=== PATIENT | male | born 1995 | race American Indian/Alaskan Native ===

== ENCOUNTER 2016-11-13 06:47 | Emergency (ER) | payer OTHER ==
[2016-11-13 07:04] VITALS: BP 113/76
[2016-11-13] MEDS ORDERED: NORCO 5/325 PO ONE (09:28)
--- NOTE | 2016-11-13 09:28 | Emergency Department Report ---
- General Chief complaint: Skin/Abscess/Foreign Body Stated complaint: UNABLE TO MOVE LT ARM Time Seen by Provider: 11/13/16 09:16 Source: patient, family Mode of arrival: Ambulatory Limitations: No Limitations - History of Present Illness Initial comments: Patient here report left armpit pain and said he thinks he has an abscess but he cannot see anything. Denies any fever or chills. Denies any nausea or vomiting. Denies any injury. Tetanus vaccine is up-to-date. MD complaint: abscess/boil Onset/Timin -: days(s) Tetanus Up to Date: yes Location: LUE (left arm.) Severity: severe Severity scale (0 -10): 10 Quality: stabbing, aching Consistency: constant Improves with: immobilization Worsens with: palpation, movement Context: none Associated symptoms: denies other symptoms Treatments Prior to Arrival: none - Related Data Previous Rx's Medication Instructions Recorded Last Taken Type HYDROcodone/APAP 5-325 [[place] 1 each PO Q6HR PRN #12 tablet 11/13/16 Unknown Rx 5/325] Ibuprofen [Motrin] 800 mg PO Q8HR PRN #15 tablet 11/13/16 Unknown Rx Sulfamethoxazole/Trimethoprim 1 each PO BID #20 tablet 11/13/16 Unknown Rx [Bactrim DS TAB] Allergies Allergy/AdvReac Type Severity Reaction Status Date / Time No Known Allergies Allergy Unverified 11/13/16 06:59 Abscess Boil HPI - HPI Chief Complaint: Skin/Abscess/Foreign Body Stated Complaint: UNABLE TO MOVE LT ARM Time Seen by Provider: 11/13/16 09:16 Home Medications: Previous Rx's Medication Instructions Recorded Last Taken Type HYDROcodone/APAP 5-325 [[place] 1 each PO Q6HR PRN #12 tablet 11/13/16 Unknown Rx 5/325] Ibuprofen [Motrin] 800 mg PO Q8HR PRN #15 tablet 11/13/16 Unknown Rx Sulfamethoxazole/Trimethoprim 1 each PO BID #20 tablet 11/13/16 Unknown Rx [Bactrim DS TAB] Allergies/Adverse Reactions: Allergies Allergy/AdvReac Type Severity Reaction Status Date / Time No Known Allergies Allergy Unverified 11/13/16 06:59 ED Review of Systems ROS: Stated complaint: UNABLE TO MOVE LT ARM Other details as noted in HPI Comment: All other systems reviewed and negative Constitutional: denies: chills, fever Respiratory: no symptoms reported Cardiovascular: denies: chest pain, palpitations, edema, syncope Gastrointestinal: denies: nausea, vomiting Musculoskeletal: denies: back pain, arthralgia Skin: other (report left armpit pain with possible abscess) Neurological: denies: headache ED Past Medical Hx - Past Medical History Previous Medical History?: Yes Hx Asthma: Yes - Surgical History Past Surgical History?: Yes Additional Surgical History: foot surgery - Family History Family history: no significant - Social History Smoking Status: Never Smoker Substance Use Type: None - Medications Home Medications: Home Medications Medication Instructions Recorded Confirmed Last Taken Type HYDROcodone/APAP 5-325 [[place] 1 each PO Q6HR PRN #12 tablet 11/13/16 Unknown Rx 5/325] Ibuprofen [Motrin] 800 mg PO Q8HR PRN #15 tablet 11/13/16 Unknown Rx Sulfamethoxazole/Trimethoprim 1 each PO BID #20 tablet 11/13/16 Unknown Rx [Bactrim DS TAB] ED Physical Exam - General Limitations: No Limitations General appearance: alert, in no apparent distress - Head Head exam: Present: atraumatic, normocephalic, normal inspection - Neck Neck exam: Present: normal inspection, full ROM. Absent: tenderness, meningismus, lymphadenopathy - Respiratory Respiratory exam: Present: normal lung sounds bilaterally. Absent: respiratory distress, chest wall tenderness - Cardiovascular Cardiovascular Exam: Present: regular rate, normal rhythm, normal heart sounds - GI/Abdominal GI/Abdominal exam: Present: soft, normal bowel sounds. Absent: distended, tenderness, guarding, rebound, rigid - Extremities Exam Extremities exam: Present: tenderness (tenderness to palpate left arm.), normal capillary refill. Absent: full ROM (muted range of motion to left upper extremity due to pain and left arm.), pedal edema, joint swelling, calf tenderness - Neurological Exam Neurological exam: Present: alert, oriented X3, normal gait, reflexes normal. Absent: motor sensory deficit - Psychiatric Psychiatric exam: Present: normal affect, normal mood - Expanded Skin Exam Expanded Type of lesion: Present: abrasion (erythema minimal to left armpit tender to palpate with multiple coalescent carbuncle appeared to be hidradinitis. No drainage noted) Distribution of rash: LUE (left axilla) Description of rash: Present: tenderness, erythematous, indurated. Absent: discharge, fluctuant ED Course Vital Signs 11/13/16 07:01 Temperature 98.2 F Pulse Rate 72 Blood Pressure 113/76 O2 Sat by Pulse 99 Oximetry Vital Signs 11/13/16 11/13/16 07:01 10:11 Temperature 98.2 F Pulse Rate 72 Respiratory 16 Rate Blood Pressure 113/76 O2 Sat by Pulse 99 Oximetry - Reevaluation(s) Reevaluation #1: 11/13/16 10:01 11/13/16 10:01 Patient given [place] 5/325 mg 2 tablets in emergency room. ED Medical Decision Making - Medical Decision Making ED course: given [place] 5/325 mg 2 tablets in emergency room for left armpit pain. Explained to him that he has Hidradenitis and he will need to follow-up with a brassiere cup mold cutter for further treatment. I also explained to him that he'll be placed on antibiotic and he needs to take it twice a day along with pain medication and he voiced understanding. Discharged home with prescription for Bactrim ,Motrin and [place]. Critical care attestation.: If time is entered above; I have spent that time in minutes in the direct care of this critically ill patient, excluding procedure time. ED Disposition Clinical Impression: Hidradenitis axillaris Disposition: DC/[facility] Is pt being admited?: No Does the pt Need Aspirin: No Condition: Stable Instructions: Cellulitis (ED) Additional Instructions: You have a condition called Hidradenitis that is the inflammation of [place]. You will need to follow-up with a brassiere cup mold cutter for further treatment and evaluation. take antibiotic as prescribed Apply warm compresses to site 3-4 times a day. Please do not take [place] while you are driving or operating heavy machinery as this will cause drowsiness Prescriptions: HYDROcodone/APAP 5-325 [[place] 5/325] 1 each PO Q6HR PRN #12 tablet PRN Reason: Pain Ibuprofen [Motrin] 800 mg PO Q8HR PRN #15 tablet PRN Reason: Pain Sulfamethoxazole/Trimethoprim [Bactrim DS TAB] 1 each PO BID #20 tablet Referrals: PRIMARY CARE, [Primary Care Provider] - 3-5 Days ISABEL REINA MD [Staff Physician] - 3-5 Days Forms: Work/School Release Form(ED), Accompanied Note
== END 2016-11-13 10:19 | disposition critical access hospital (66) ==
LOC: ED 06:47
DX: L73.2 Hidradenitis suppurativa (principal); J45.909 Unspecified asthma, uncomplicated
CPT/HCPCS: 99282

== ENCOUNTER 2016-11-28 16:35 | Emergency (ER) | payer OTHER ==
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
[2016-11-28] MEDS ORDERED: NORCO 5/325 PO ONE (20:14)
[2016-11-28] MEDS ORDERED: TORADOL IM ONE (20:14)
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
[2016-11-28] MEDS ORDERED: TRIPLE ANTIBIOTIC TP ONE (21:09)
[2016-11-28 21:24] VITALS: BP 116/74
== END 2016-11-28 21:21 | disposition home or self-care (01) ==
LOC: ED 16:35
DX: S10.93XA Contusion of unspecified part of neck, initial encounter (principal); S00.83XA Contusion of other part of head, initial encounter; J45.909 Unspecified asthma, uncomplicated; F12.90 Cannabis use, unspecified, uncomplicated; Z72.0 Tobacco use; Y04.2XXA Assault by strike against or bumped into by another person, initial encounter; Y93.89 Activity, other specified; Y99.9 Unspecified external cause status; Y92.89 Other specified places as the place of occurrence of the external cause
CPT/HCPCS: 70450; 70486; 72125; 99283; J1885; A6250